=== PATIENT | male | born 1990 ===

== ENCOUNTER → 2025-02-01 08:41 | Outpatient (REF) | payer MEDICARE, OTHER, SELFPAY | LOC: RST 08:41 | PROVIDERS: ATTENDING PHYSICIAN Student in an Organized Health Care Education/Training Program; FAMILY PHYSICIAN Family Medicine | DX: R13.13 Dysphagia, pharyngeal phase (principal) | CPT/HCPCS: 74230; 92611 ==

== ENCOUNTER 2025-02-12 09:09 | Outpatient (RCR) | payer MEDICARE, SELFPAY | END 2025-02-12 23:59 | disposition home or self-care (01) | LOC: RST 09:09 | PROVIDERS: ATTENDING PHYSICIAN Student in an Organized Health Care Education/Training Program | DX: J38.3 Other diseases of vocal cords (principal); R49.0 Dysphonia; R13.13 Dysphagia, pharyngeal phase; Z98.890 Other specified postprocedural states | CPT/HCPCS: 92507; 92524 ==